=== PATIENT | male | born 2000 | race Caucasian/White ===

== ENCOUNTER → 2021-07-15 | Outpatient (CLI) | payer OTHER ==
[~2021-07-15] MED LIST: FAMO8SU PO; IBUP100S PO; ONDA4ODT MM; PROM25 PO; SODI1T
[2021-07-18 05:11] LABS: CHLAMYDIA TRACHOMATIS, NAA Negative (Negative)
== END | disposition home or self-care (01) ==
LOC: LAB SHORT 18:40
PROVIDERS: Physician Assistant
DX: Z72.51 High risk heterosexual behavior (principal)
CPT/HCPCS: 87070; 87147; 87205; 87491; 87591

== ENCOUNTER → 2021-09-22 | Outpatient (CLI) | payer OTHER ==
[2021-09-24 03:08] LABS: CHLAMYDIA TRACHOMATIS, NAA Negative (Negative)
== END | disposition home or self-care (01) ==
LOC: LAB SHORT 13:25
PROVIDERS: Physician Assistant
DX: Z72.51 High risk heterosexual behavior (principal)
CPT/HCPCS: 87086; 87491; 87591